=== PATIENT | female | born 1965 | race Caucasian/White ===

== ENCOUNTER → 2017-09-27 | Outpatient (CLI) | payer OTHER ==
--- NOTE | 2017-09-27 10:19 | REPMRS ---
Patient History The patient states she has not had a clinical breast exam in over a year. Family history of prostate cancer in maternal grandfather. Taking hormonal contraceptives for 3 years. Digital Mammo Screening Bilat: September 27, 2017 - Exam #: [id number] Bilateral CC and MLO view(s) were taken. Technologist: Paige Varela Technologist Prior study comparison: July 11, 2015, bilateral digital mammo screening bilat performed at [facility]. April 28, 2014, bilateral digital mammo screening bilat performed at [facility]. FINDINGS: There are scattered fibroglandular densities. There has been no change in the appearance of the mammogram from the prior studies. There is a mild amount of residual fibroglandular tissue which is fairly symmetric. There is no interval development of dominant mass, architectural distortion, or clustered microcalcification suggestive of malignancy. ASSESSMENT: BI-RADS/ACR category 1 mammogram. Negative. Recommendation Routine screening mammogram in 1 year (for women over age 40). This mammogram was interpreted with the aid of an FDA-approved computer-aided dectection system. Electronically Signed By: Olegario Araya MD 09/27/17 [id number]
== END ==
LOC: M RAD 09:39
PROVIDERS: ATTEND Family Medicine
DX: Z12.31 Encounter for screening mammogram for malignant neoplasm of breast (principal)

== ENCOUNTER 2018-04-02 11:05 | Day surgery (SDC) | payer OTHER ==
[~2018-04-02 11:05] MED LIST: LIDOCAINE 2% INJ 100 MG/5 ML SDV (FOR ANES.) As Ordered; PROPOFOL 200 MG/20 ML VIAL As Ordered
[2018-04-02] MEDS: NS 1,000 ML IV (11:23)
[2018-04-02] MEDS ORDERED: PROPOFOL 200 MG/20 ML VIAL As Ordered (12:52)
== END 2018-04-02 14:07 | disposition home or self-care (01) ==
LOC: M OPP 11:05
DX: Z12.11 Encounter for screening for malignant neoplasm of colon (principal); K57.30 Diverticulosis of large intestine without perforation or abscess without bleeding; K64.4 Residual hemorrhoidal skin tags; E78.5 Hyperlipidemia, unspecified; K21.9 Gastro-esophageal reflux disease without esophagitis; M25.511 Pain in right shoulder; Z91.040 Latex allergy status; Z79.899 Other long term (current) drug therapy; Z87.891 Personal history of nicotine dependence; Z80.1 Family history of malignant neoplasm of trachea, bronchus and lung
CPT/HCPCS: G0121

== ENCOUNTER → 2020-12-08 | Outpatient (CLI) | payer OTHER ==
[~2020-12-08] MED LIST changes: -LIDOCAINE 2% INJ 100 MG/5 ML SDV (FOR ANES.) As Ordered; +MELO15TA28 PO; -PROPOFOL 200 MG/20 ML VIAL As Ordered
--- NOTE | 2020-12-08 16:49 | REPMRS ---
Patient History The patient states she has not had a clinical breast exam in over a year. Family history of prostate cancer in maternal grandfather. Taking hormonal contraceptives for 6 years. Digital Woman Screen Mammo: December 08, 2020 - Exam #: [id number] Bilateral CC and MLO view(s) were taken. Technologist: Ronda Kim, Technologist Prior study comparison: September 27, 2017, bilateral digital mammo screening bilat, performed at [facility]. July 11, 2015, bilateral digital mammo screening bilat, performed at [facility]. April 28, 2014, bilateral digital mammo screening bilat, performed at [facility]. FINDINGS: There are scattered fibroglandular densities. The Volpara volumetric breast density category is:B. There has been no change in the appearance of the mammogram from the prior studies. There is a mild amount of scattered fibroglandular density which is fairly symmetric. There is no interval development of dominant mass, architectural distortion, or grouped microcalcification suggestive of malignancy. 3-D tomosynthesis shows no additional findings. Assessment: BI-RADS/ACR category 1 mammogram. Negative Mammogram. Recommendation Routine screening mammogram of both breasts in 1 year (for women over age 40). This patient's [facility] Lifetime Breast Cancer Risk is estimated at 6.4 %. This mammogram was interpreted with the aid of an FDA-approved computer-aided dectection system. Electronically Signed By: Myles Morrison MD 12/08/20 [id number]
== END ==
LOC: M WHC 14:37
PROVIDERS: ATTEND Family Medicine
DX: Z12.31 Encounter for screening mammogram for malignant neoplasm of breast (principal); Z79.3 Long term (current) use of hormonal contraceptives

== ENCOUNTER 2021-02-21 09:04 | Day surgery (SDC) | payer OTHER ==
[~2021-02-21] VITALS: Ht 157.5 cm; Wt 93.8 kg
[~2021-02-21 09:04] MED LIST changes: +ACETAMINOPHEN 650 MG SUPP PR ONE; +LR 1,000 ML IV ONE; +VITA1CAP25; +VITMTA PO; +ZYRTTAB8 PO
[2021-02-21] MEDS ORDERED: NS 800 ML IV ONE ×2 (09:25→09:35)
[2021-02-21 09:34] LABS: HEMATOCRIT 43.6 % (36.0-47.0); HEMOGLOBIN 13.8 g/dl (12.0-15.5); MEAN CORPUSCULAR HEMOGLOBIN 27.7 pg (27.0-33.0); MEAN CORPUSCULAR HGB CONC 31.7 g/dl (32.0-36.5); MEAN CORPUSCULAR VOLUME 87.4 fl (80.0-96.0); PLATELET COUNT, AUTOMATED 263 10^3/uL (150-450); RED BLOOD COUNT 4.99 10^6/uL (4.00-5.40); WHITE BLOOD COUNT 8.5 10^3/uL (4.0-10.0)
[2021-02-21 10:03] LABS: BLOOD UREA NITROGEN 13 MG/DL (7-18); CALCIUM LEVEL 9.3 MG/DL (8.5-10.1); CARBON DIOXIDE LEVEL 31 MEQ/L (21-32); CHLORIDE LEVEL 111 MEQ/L (98-107); GLOMERULAR FILTRATION RATE > 60.0 (>51); GLUCOSE, FASTING 84 MG/DL (70-100); HCG, SERUM QUANTITATIVE < 1.0 MIU/ML; POTASSIUM SERUM 4.4 MEQ/L (3.5-5.1); SODIUM LEVEL 144 MEQ/L (136-145)
[2021-02-21] MEDS ORDERED: fentaNYL 250 MCG/5 ML INJECTION (J3010) As Ordered ONE (11:52)
[2021-02-21] MEDS ORDERED: MIDAZOLAM INJ 2MG/2ML VIAL (J2250 PER 1MG) As Ordered ONE (11:54)
[2021-02-21] MEDS ORDERED: LIDOCAINE 2% 100MG/5ML SDV (FOR ANES.) As Ordered ONE (11:55)
[2021-02-21] MEDS ORDERED: ACETAMINOPHEN 650 MG SUPP As Ordered ONE (11:57)
[2021-02-21] MEDS ORDERED: dexameTHASONE 4 MG/ML 1ML VIAL (J1100 PER 1MG) As Ordered ONE (11:58)
[2021-02-21] MEDS ORDERED: KETOROLAC 60MG 2ML VIAL As Ordered ONE (11:58)
[2021-02-21] MEDS ORDERED: propofoL 200 MG/20 ML VIAL As Ordered ONE ×2 (12:00→13:05)
[2021-02-21] MEDS ORDERED: oxyCODONE 5MG TAB PO PRN (13:35)
[2021-02-21] MEDS ORDERED: ONDANSETRON 4MG/2ML VIAL IV PRN (13:35)
[2021-02-21] MEDS ORDERED: fentaNYL 100 MCG/2 ML INJECTION (J3010) IV PRN (13:35)
[2021-02-21] MEDS ORDERED: LR 1,000 ML IV SCH (13:35)
[2021-02-21] MEDS ORDERED: fentaNYL 100 MCG/2 ML INJECTION (J3010) As Ordered ONE (13:36)
[2021-02-21 15:10] VITALS: BP 141/75
--- NOTE | 2021-02-26 08:21 | RO ---
OPERATIVE NOTE DATE OF OPERATION: 02/21/2021 PREOPERATIVE DIAGNOSIS: Impacted IUCD, enterocele grade 3, deviated uterus to the right. POSTOPERATIVE DIAGNOSIS: Impacted IUCD, enterocele grade 3, deviated uterus to the right. OPERATION PROPOSED: Hysteroscopy, D&C, removal of IUCD.y h OPERATION PERFORMED: Removal of IUCD. SURGEON: Leon Osei MD CENTER MACHINE OPERATOR: ANESTHESIA: General. ESTIMATED BLOOD LOSS: Less than 10 mL. DESCRIPTION OF PROCEDURE: After adequate time out, prepped and draped in lithotomy position. Bladder was drained for 500 mL of clear urine. Weighted speculum in the vagina, this was compromised by grade 3 enterocele. We were able to visualize the cervix which was flush to the anterior wall of the vagina and it was deviated off to the right. Eventually we were able to isolate a small portion of the anterior cervix, not enough to be able to grasp it with single tooth tenaculum because of its extreme plication to the vaginal wall. However, with packing forceps we were able to find the string of the IUCD and we removed the IUCD and sent off to pathology under separate cover. Minimal amount of bleeding was noted. All instruments were removed. The patient tolerated the procedure well and was set to recovery in good condition. cc: Sara Birmingham OB
== END 2021-02-21 15:20 | disposition home or self-care (01) ==
LOC: M SDC 09:04
PROVIDERS: ATTEND Obstetrics & Gynecology
DX: T83.39XA Other mechanical complication of intrauterine contraceptive device, initial encounter (principal); Y76.2 Prosthetic and other implants, materials and accessory obstetric and gynecological devices associated with adverse incidents; N81.5 Vaginal enterocele; M25.511 Pain in right shoulder; Z91.040 Latex allergy status; Z79.899 Other long term (current) drug therapy
CPT/HCPCS: 36415; 58301; 80048; 84702; 85027; 88300; J1100; J1885; J2250; J3010